=== PATIENT | female | born 1980 | race Caucasian/White ===

== ENCOUNTER 2019-02-20 17:06 | Emergency (ER) | payer OTHER, SELFPAY ==
[2019-02-20 17:21] VITALS: BP 129/79; PULSE 62; RESP 18; TEMP 36.3; O2SAT 100; BMI 29.1
--- NOTE | 2019-02-20 18:23 | ED.NECK ---
HPI - Neck Pain/Injury General Chief Complaint: Neck Pain/Injury Stated Complaint: hurt her neck, in pain, unknown cause Time Seen by Provider: 02/20/19 18:20 Source: patient Mode of arrival: ambulatory Limitations: no limitations History of Present Illness HPI Narrative: Patient is a 38-year-old female who presents with right-sided neck pain. She says 2 days ago she was on the ground medicine around when her head got tilted back and twisted. Since then she has had right-sided paraspinal muscle spasm worse with movement. She has had numbness tingling in her hands a lot better today. He has taken ibuprofen for it without much relief. She has had muscle spasms like this in the past. She does have some right-sided anterior pain no obvious swelling able to swallow completely no voice changes. MD complaint: neck pain and neck injury Onset (ago): day(s) (2) Place: home Radiation: right lateral Severity: moderate Quality: stabbing Duration: constant Related Data Home Medications Medication Instructions Recorded Confirmed ondansetron HCl 4 mg tablet 4 mg PO Q8-12H PRN 10/28/18 10/28/18 Previous Rx's Medication Instructions Recorded propranolol ER 60 mg capsule,24 60 mg PO BEDTIME #30 cap 01/01/19 hr,extended release diazepam [Valium] 5 mg PO BID PRN #10 tab 02/20/19 meloxicam 7.5 mg PO DAILY PRN #14 tab 02/20/19 Allergies Allergy/AdvReac Type Severity Reaction Status Date / Time No Known Drug Allergies Allergy Verified 02/20/19 17:42 Review of Systems Constitutional Denies chills, Denies fever(s), Denies lethargy and Denies weakness ENT Ears, Nose, Mouth, and Throat: Denies vertigo, Denies dizziness and Reports neck pain Cardiovascular Denies chest pain, Denies irregular heart rhythm, Denies lightheadedness, Denies palpitations, Denies dyspnea, Denies dyspnea on exertion and Denies orthopnea Respiratory Denies cough, Denies dyspnea, Denies dyspnea on exertion and Denies wheezing Gastrointestinal Gastrointestinal: Denies abdominal pain, Denies change in bowel habits, Denies diarrhea, Denies nausea and Denies vomiting Genitourinary Denies hematuria, Denies flank pain, Denies urinary incontinence and Denies urinary urgency Musculoskeletal Reports as per HPI and Reports neck pain Integumentary/Breasts Denies pruritus, Denies erythema, Denies rash and Denies wounds Neurologic Denies vertigo, Denies dizziness and Denies weakness Endocrine Denies palpitations Allergic/Immunologic Denies wheezing [facility] Medical History Anxiety (Acute) Thoracic outlet syndrome (Acute) Social History Smoking Status: Former smoker Social History Smoking Status: Former smoker Exam Initial Vital Signs Initial Vital Signs: Vital Signs Temperature 97.3 F L 02/20/19 17:21 Pulse Rate 62 02/20/19 17:21 Respiratory Rate 18 02/20/19 17:21 Blood Pressure 129/79 02/20/19 17:21 Pulse Oximetry 100 02/20/19 17:21 GENERAL: Well-appearing, well-nourished and in no acute distress. HEENT: Head atraumatic,EOMI, pupils reactive, face symmetric, moist mucous membranes NECK: No midline tenderness no vertebral tenderness right paraspinal muscle spasm pain reproduced with palpation and movement. Muscle spasm and obviously appreciated CARDIOVASCULAR: Regular rate and rhythm without murmurs, rubs or gallops. RESPIRATORY: Breath sounds equal bilaterally, no wheezes rales or rhonchi. EXTREMITIES: Normal range of motion, no clubbing or edema. Neurovascularly intact NEUROLOGICAL: Alert and oriented x4.Normal gait and speech. SKIN: Warm, dry, no laceration, no petechiae, no rashes or lesions. Course Orders Ordered: Discontinued Medications Diazepam (Valium) 5 mg PO NOW ONE Stop: 02/20/19 18:21 Last Admin: 02/20/19 18:35 Dose: 5 mg Ketorolac Tromethamine (Toradol) 60 mg IM NOW ONE Stop: 02/20/19 18:21 Last Admin: 02/20/19 18:35 Dose: 60 mg Vital Signs - 8 hr 02/20/19 17:21 02/20/19 19:03 Temperature 97.3 F L Pulse Rate 62 52 L Respiratory Rate 18 16 Blood Pressure 129/79 Blood Pressure [Left Arm] 103/51 L Pulse Oximetry 100 99 MDM - Neck Pain/Injury MDM Narrative Medical decision making narrative: The patient has no trauma she clearly has musculoskeletal pain along her trapezius. She also has some anterior pain she has no difficulty swallowing she is able to rotate her head fully. At this time I do not see any need for any sort of imaging. Discharge Plan Departure Patient Disposition: Home Clinical Impression: Strain of neck muscle Qualifiers: Encounter type: initial encounter Qualified Code(s): S16.1XXA - Strain of muscle, fascia and tendon at neck level, initial encounter Discharge Date/Time: 02/20/19 19:37 Interventions: ED Discharge Assessment Last Done: 02/20/19 19:37 Instructions: Neck Sprain Activity Restrictions/Additional Instructions: *You have been diagnosed with neck strain *What to do: Increased movement and activity as tolerated. Recommend light stretching. *Continue to take medications as directed Meloxicam 7.5 mg once a day. Do not combine with any other NSAIDs such as ibuprofen, Motrin, Advil Aleve etc Valium 5 mg every 12 hours if needed for muscle spasm *Follow up with your primary care provider in 2-3 days *Return to ER if you should have numbness, tingling, increased pain, weakness, inability to swallow or any new, worsening or concerning symptoms Prescriptions: New meloxicam 7.5 mg tablet 7.5 mg PO DAILY PRN (Reason: pain) Qty: 14 RF: 0 diazepam [Valium] 5 mg tablet 5 mg PO BID PRN (Reason: muscle spasm) Qty: 10 RF: 0 No Action ondansetron HCl [Zofran] 4 mg tablet 4 mg PO Q8-12H PRNRF: 0 propranolol 60 mg capsule,extended release 24 hr 60 mg PO BEDTIME Qty: 30 RF: 1
[2019-02-20] MEDS: KETOROLAC 60 MG/2 ML VIAL IM (18:35)
[2019-02-20] MEDS: diazePAM 5 MG TABLET PO (18:35)
--- NOTE | 2019-02-20 18:43 | PC.NURSE ---
pt states, she was stretching 2 days ago, now with right side of neck pain, worsen with movement. when turning to the left side, developes right cheondoism pain. denies difficulty swallowing. pt able to move neck from side to side , and up and down.
[2019-02-20 19:03] VITALS: BP 103/51; PULSE 52; RESP 16; O2SAT 99
== END 2019-02-20 19:37 | disposition home or self-care (01) ==
PROVIDERS: Emergency Provider Emergency Medicine
DX: S16.1XXA Strain of muscle, fascia and tendon at neck level, initial encounter (principal); R20.2 Paresthesia of skin
CPT/HCPCS: 96372; 99283; J1885

== ENCOUNTER 2019-02-21 20:10 | Emergency (ER) | payer OTHER, SELFPAY ==
[2019-02-21 20:17] VITALS: BP 135/75; PULSE 56; RESP 14; TEMP 36.8; O2SAT 99
--- NOTE | 2019-02-21 20:33 | DI.CT.S_ITS ---
PROCEDURE: CT ANGIO NECK INDICATIONS: right sided neck pain and face pain inury 3 days ago TECHNIQUE: After the administration of intravenous contrast, 1.5 mm axial sections acquired from the aortic arch to the [place]. Maximum intensity projection (MIP) reformats were then performed. COMPARISON: None. FINDINGS: Image quality: Excellent. Carotid system: There is a two-vessel aortic arch with common origin of the brachiocephalic trunk and the left common carotid artery. The origins of the common carotid arteries appear patent. The common carotid arteries demonstrate normal calibers and courses. The bifurcation regions appear normal bilaterally. The left internal carotid artery demonstrates a normal caliber and course. There is irregularity of the right internal carotid artery approximately 3.5 cm superior/distal to the carotid bifurcation at the level of C2, where there are 2 areas of adjacent irregular bulbous widening of the internal carotid artery diameter up to 10 mm and 8 mm respectively, when the internal carotid artery both distal and proximal to these regions measures approximately 5 mm. These are best seen on axial image 75 of series 5, sagittal image 64 of series 10, and coronal image 124 of series 9. Posterior circulation: The origins of the vertebral arteries appear patent. The more superior portions of the vertebral arteries demonstrate normal course and caliber. They join to form a normal appearing basilar artery. The patient is left vertebral artery dominant. Soft tissues: There are 5 mm hypoattenuating foci within the bilateral thyroid lobes. Bilateral cervical lymph nodes are mildly prominent but do not definitively measure enlarged by size criteria. Bones: No suspicious bony lesions. There is no acute fracture dislocation of the cervical spine. There is straightening of the normal cervical lordosis, which can be positional or represent muscle spasm. IMPRESSION: 1. 2 areas of irregular enlargement of the right internal carotid artery up to a maximal diameter of 1.0 cm located approximately 3.5 cm superior/distal to the right carotid bifurcation at the level of the C2 vertebral body, concerning for pseudoaneurysms/true aneurysms. 2. No convincing stenosis or occlusion of the bilateral cervical vertebral and carotid arteries. 3. Mildly prominent cervical lymph nodes bilaterally, nonspecific and possibly reactive. 4. Subcentimeter hypoattenuating foci within the thyroid gland; consider thyroid ultrasound if there is continued clinical concern. 5. Straightening of the normal cervical lordosis, which can be positional or represent muscle spasm. Any quantitative stenosis measurements were performed using the NASCET criteria. Findings discussed with the referring provider Dr. Stormy Spencer by telephone by Dr. Rodríguez at approximately 10:30 PM on 02/21/2019. Dictated by: Walt Rodríguez M.D. on 02/21/2019 at 22:06 Approved by: Walt Rodríguez M.D. on 02/21/2019 at 22:40
--- NOTE | 2019-02-21 20:58 | ED_ITS ---
HPI - Back Pain/Injury General Chief Complaint: Back Pain/Injury Stated Complaint: neck problem Time Seen by Provider: 02/21/19 20:20 Source: patient Mode of arrival: ambulatory Limitations: no limitations History of Present Illness HPI Narrative: Patient is a 38-year-old female who presents with right-sided neck pain and face pain. She was seen evaluated here yesterday. She injured her neck 3 days ago there was no fall. She was on the bed when her tickled her, she tilted her head up and twisted it. As she has always had problems on her right side is seems to be worse. She was given meloxicam and Valium yesterday. She took both pills today and 2 Valium she says she has not been getting any relief. She has no numbness or tingling in her right hand, she does have right-sided facial numbness. She can turn to easily however she still has pain some anterior of her neck and right lateral side. MD Complaint: other (Neck pain) Onset (ago): day(s) (3) Related Data Home Medications Medication Instructions Recorded Confirmed ondansetron HCl 4 mg tablet 4 mg PO Q8-12H PRN 10/28/18 10/28/18 Previous Rx's Medication Instructions Recorded propranolol ER 60 mg capsule,24 60 mg PO BEDTIME #30 cap 01/01/19 hr,extended release diazepam [Valium] 5 mg PO BID PRN #10 tab 02/20/19 meloxicam 7.5 mg PO DAILY PRN #14 tab 02/20/19 Allergies Allergy/AdvReac Type Severity Reaction Status Date / Time No Known Drug Allergies Allergy Verified 02/20/19 17:42 Review of Systems Review of Systems ROS Unobtainable: All systems reviewed & are unremarkable except as noted in HPI and below Constitutional Denies chills, Denies fever(s), Denies lethargy and Denies weakness Eyes Denies change in vision, Denies eye discharge, Denies irritation and Denies loss of vision ENT Ears, Nose, Mouth, and Throat: Denies dysphagia, Denies vertigo, Denies dizziness, Reports neck pain and Denies sore throat Cardiovascular Denies chest pain, Denies irregular heart rhythm, Denies lightheadedness, Denies palpitations, Denies dyspnea, Denies dyspnea on exertion and Denies orthopnea Respiratory Denies cough, Denies dyspnea, Denies dyspnea on exertion and Denies wheezing Gastrointestinal Gastrointestinal: Denies dysphagia Genitourinary Denies hematuria, Denies flank pain, Denies urinary incontinence and Denies urinary urgency Musculoskeletal Denies deformity, Denies joint swelling, Reports neck pain and Reports numbness (Right face) Integumentary/Breasts Denies pruritus, Denies erythema, Denies rash and Denies wounds Neurologic Denies vertigo, Denies dizziness, Denies loss of vision, Reports numbness (Right face) and Denies weakness Endocrine Denies palpitations Allergic/Immunologic Denies wheezing [facility] Medical History Anxiety (Acute) Thoracic outlet syndrome (Acute) Social History (Updated 02/22/19 @ 01:11 by Stormy Spencer DO) marital status: Smoking Status: Former smoker Social History marital status: Smoking Status: Former smoker Exam Initial Vital Signs Initial Vital Signs: Vital Signs Temperature 98.3 F 02/21/19 20:17 Pulse Rate 56 L 02/21/19 20:17 Respiratory Rate 14 02/21/19 20:17 Blood Pressure 135/75 02/21/19 20:17 Pulse Oximetry 99 02/21/19 20:17 Const General: cooperative and healthy appearing Orientation: alert, awake and oriented x3 HENMT Head: normal to inspection, normocephalic and atraumatic Ears: hearing grossly normal bilaterally Face and sinus: normal facial exam and face symmetric Eyes General: appearance normal, both eyes and all related structures Eyelids: eyelids normal Pupils: PERRL EOM: EOM intact bilaterally Neck Neck: normal visual inspection, supple, No anterior neck swelling, No lymphadenopathy, No midline deformity and No submandibular swelling Other: Mild right anterior pain, no difficulty swallowing managing own secretions. No swelling appreciated Chest Chest: normal inspection of the chest Resp Effort & Inspection: normal respiratory effort Auscultation: clear to auscultation bilaterally, no rhonchi and no wheezes Cardio Rate: regular rate Heart Sounds: S1 normal and S2 normal Back/Spine/Pelvis Cervical Spine: cervical ROM normal, No scars present, cervical spasm and No step off deformity Skin General: no rashes or lesions noted, No ecchymosis and No erythema Neuro General: alert, awake, oriented x3 and CN's II-XI intact bilaterally Cranial Nerves: PERRL and tongue midline Extrem General: normal to inspection Psych Appearance: grossly normal Course Orders Ordered: ED Orders 02/21/19 20:33 CT angio neck Stat 02/21/19 21:10 Basic Metabolic Panel Stat Complete Blood Count AUTO DIFF Stat Discontinued Medications Hydromorphone HCl (Dilaudid) 0.5 mg IV NOW ONE Stop: 02/22/19 01:42 Last Admin: 02/22/19 01:47 Dose: 0.5 mg Sodium Chloride (Normal Saline 0.9%) 1,000 mls @ 1,000 mls/hr IV BOLUS ONE Stop: 02/21/19 21:32 Last Infusion: 02/21/19 22:39 Dose: 0 mls/hr Admin: 02/21/19 21:16 Dose: 1,000 mls/hr Ketorolac Tromethamine (Toradol) 30 mg IV NOW ONE Stop: 02/21/19 23:39 Last Admin: 02/21/19 23:56 Dose: 30 mg Morphine Sulfate (Morphine) 4 mg IV NOW ONE Stop: 02/21/19 20:34 Last Admin: 02/21/19 21:16 Dose: 4 mg Vital Signs - 8 hr 02/21/19 20:17 02/22/19 01:37 02/22/19 01:53 Temperature 98.3 F 98.4 F Pulse Rate 56 L 64 Respiratory Rate 14 16 Blood Pressure 135/75 Blood Pressure [Right Arm] 115/70 Pulse Oximetry 99 99 MDM - Back Pain/Injury Lab Data Attestation: I reviewed the patient's lab results. Result diagrams: 02/21/19 21:10 02/21/19 21:10 Lab Results 02/21/19 02/21/19 Range/Units 21:10 21:10 WBC 8.0 (4.5-11.0) X10^3/uL RBC 4.48 (4.0-5.2) X10^6/uL Hgb 13.6 (12.0-16.0) g/dL Hct 40.7 (36-46) % MCV 90.9 (80-100) fL MCH 30.5 (26-34) PG MCHC 33.5 (30-36) % RDW 13.2 (11.6-14.8) % Plt Count 192 (150-400) X10^3/uL Neut % (Auto) 50.0 (50-75) % Lymph % (Auto) 39.7 (25-40) % [place] % (Auto) 7.2 (3-14) % Eos % (Auto) 2.7 (2-4) % Baso % (Auto) 0.4 (0-2) % Neut # (Auto) 4000 (9678-6581) /uL Lymph # (Auto) 3200 (6229-7534) /uL [place] # (Auto) 600 (0-900) /uL Eos # (Auto) 200 (0-450) /uL Baso # (Auto) 0 (0-100) /uL Sodium 142 (137-145) mmol/L Potassium 4.1 (3.4-5.1) mmol/L Chloride 105 (98-107) mmol/L Carbon Dioxide 27 (22-32) mmol/L BUN 15 (7-17) mg/dL Creatinine 0.80 (0.52-1.04) mg/dL Estimated GFR > 60.0 (>60) mL/min BUN/Creatinine Ratio 18.8 (6-22) Glucose 88 (70-100) mg/dL Calcium 9.4 (8.4-10.2) mg/dL Point of Care Testing Test Results Negative Imaging Data CTA neck: Radiologist's impression: PROCEDURE: CT ANGIO NECK INDICATIONS: right sided neck pain and face pain inury 3 days ago TECHNIQUE: After the administration of intravenous contrast, 1.5 mm axial sections acquired from the aortic arch to the [place]. Maximum intensity projection (MIP) reformats were then performed. COMPARISON: None. FINDINGS: Image quality: Excellent. Carotid system: There is a two-vessel aortic arch with common origin of the brachiocephalic trunk and the left common carotid artery. The origins of the common carotid arteries appear patent. The common carotid arteries demonstrate normal calibers and courses. The bifurcation regions appear normal bilaterally. The left internal carotid artery demonstrates a normal caliber and course. There is irregularity of the right internal carotid artery approximately 3.5 cm superior/distal to the carotid bifurcation at the level of C2, where there are 2 areas of adjacent irregular bulbous widening of the internal carotid artery diameter up to 10 mm and 8 mm respectively, when the internal carotid artery both distal and proximal to these regions measures approximately 5 mm. These are best seen on axial image 75 of series 5, sagittal image 64 of series 10, and coronal image 124 of series 9. Posterior circulation: The origins of the vertebral arteries appear patent. The more superior portions of the vertebral arteries demonstrate normal course and caliber. They join to form a normal appearing basilar artery. The patient is left vertebral artery dominant. Soft tissues: There are 5 mm hypoattenuating foci within the bilateral thyroid lobes. Bilateral cervical lymph nodes are mildly prominent but do not definitively geri sure enlarged by size criteria. Bones: No suspicious bony lesions. There is no acute fracture dislocation of the cervical spine. There is straightening of the normal cervical lordosis, which can be positional or represent muscle spasm. IMPRESSION: 1. 2 areas of irregular enlargement of the right internal carotid artery up to a maximal diameter of 1.0 cm located approximately 3.5 cm superior/distal to the right carotid bifurcation at the level of the C2 vertebral body, concerning for pseudoaneurysms/true aneurysms. 2. No convincing stenosis or occlusion of the bilateral cervical vertebral and carotid arteries. 3. Mildly prominent cervical lymph nodes bilaterally, nonspecific and possibly reactive. 4. Subcentimeter hypoattenuating foci within the thyroid gland; consider thyroid ultrasound if there is continued clinical concern. 5. Straightening of the normal cervical lordosis, which can be positional or represent muscle spasm. Any quantitative stenosis measurements were performed using the NASCET criteria. Findings discussed with the referring provider Dr. Stormy Spencer by telephone by Dr. Rodríguez at approximately 10:30 PM on 02/21/2019. Dictated by: Walt Rodríguez M.D. on 02/21/2019 at 22:06 Approved by: Walt Rodríguez M.D. on 02/21/2019 at 22:40 MDM Narrative Medical decision making narrative: Patient is having neck spasms and some facial tingling sometimes some numbness. Worsening pain from yesterday so decision to do a CTA rule out dissection. Incidental findings of carotid aneurysm found. Patient is hemodynamically stable did not get much relief with morphine or Toradol. Ambulatory in the ED. 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 I called and spoke with neurosurgeon Dr. Hughes, at [facility] who has reviewed images. At this time he recommends patient be transferred to [facility] for further testing. Unlikely to have surgical intervention but definitely needs to be followed and more testing. The patient took her own propranolol at her regular time while in the ED for her anxiety. Patient is agreeable to go by ambulance. I discussed all findings with the patient and , Education has been performed regarding treatment plan, diagnosis, warning signs and symptoms and all concerns have been addressed. Verbally agree with and understood all of the above. Discharge Plan Departure Patient Disposition: [facility] Clinical Impression: Carotid aneurysm, right Discharge Date/Time: 02/22/19 02:03 Interventions: ED Discharge Assessment Last Done: 02/22/19 02:00 Prescriptions: No Action ondansetron HCl [Zofran] 4 mg tablet 4 mg PO Q8-12H PRNRF: 0 propranolol 60 mg capsule,extended release 24 hr 60 mg PO BEDTIME Qty: 30 RF: 1 meloxicam 7.5 mg tablet 7.5 mg PO DAILY PRN (Reason: pain) Qty: 14 RF: 0 diazepam [Valium] 5 mg tablet 5 mg PO BID PRN (Reason: muscle spasm) Qty: 10 RF: 0
[2019-02-21] MEDS: SODIUM CHLORIDE 0.9% 1,000 ML 1000 ML IV (21:16)
[2019-02-21] MEDS: MORPHINE 4 MG/ML INJ IV (21:16)
[2019-02-21 21:22] LABS: Add Manual Diff / Slide Review NO; Basophils Absolute Auto 0 /uL (0-100); Basophils Percent Auto 0.4 % (0-2); Eosinophils Absolute Auto 200 /uL (0-450); Eosinophils Percent Auto 2.7 % (2-4); Hematocrit 40.7 % (36-46); Hemoglobin 13.6 g/dL (12.0-16.0); Lymphocytes Absolute Auto 3200 /uL (1100-4500); Lymphocytes Percent Auto 39.7 % (25-40); Mean Corpuscular HGB Conc 33.5 % (30-36); Mean Corpuscular Hemoglobin 30.5 PG (26-34); Mean Corpuscular Volume 90.9 fL (80-100); Monocytes Absolute Auto 600 /uL (0-900); Monocytes Percent Auto 7.2 % (3-14); Neutrophils Absolute Auto 4000 /uL (1500-7000); Platelet Count 192 X10^3/uL (150-400); Red Blood Cell Count 4.48 X10^6/uL (4.0-5.2); Red Cell Distribution Width 13.2 % (11.6-14.8)
[2019-02-21 21:31] LABS: BUN Creatinine Ratio 18.8 (6-22); Blood Urea Nitrogen 15 mg/dL (7-17); Calcium 9.4 mg/dL (8.4-10.2); Carbon Dioxide 27 mmol/L (22-32); Chloride 105 mmol/L (98-107); Estimated Glomerular Filt Rate > 60.0 mL/min (>60); Glucose 88 mg/dL (70-100); HEMOLYSIS < 15 (0-50); Potassium 4.1 mmol/L (3.4-5.1); Sodium 142 mmol/L (137-145)
[2019-02-21] MEDS: KETOROLAC 60 MG/2 ML VIAL 30 MG IV (23:56)
--- NOTE | 2019-02-22 00:01 | PC.NURSE ---
Pt asking if she can take her normal dose of propranolol for anxiety. States has her own meds here. Asked provider. Provider ok with Pt taking her own dose of propranolol
[2019-02-22 01:37] VITALS: BP 115/70; PULSE 64; RESP 16; TEMP 36.9
[2019-02-22] MEDS: HYDROMORPHONE 1 MG INJ 0.5 MG IV (01:47)
[2019-02-22 01:53] VITALS: O2SAT 99
== END 2019-02-22 02:03 | disposition short-term general hospital (02) ==
PROVIDERS: Emergency Provider Emergency Medicine
DX: I72.0 Aneurysm of carotid artery (principal); R20.0 Anesthesia of skin; M54.2 Cervicalgia
CPT/HCPCS: 10010; 36591; 70498; 80048; 81025; 85025; 96361; 96374; 96375; 99283; 99284; J1170; J1885; J2270; Q9967

== ENCOUNTER → 2019-03-08 13:28 | Outpatient (CLI) | payer OTHER, SELFPAY ==
--- NOTE | 2019-03-08 13:42 | DI.CT.S_ITS ---
PROCEDURE: CT ANGIO CHEST ABDOMEN PELVIS INDICATIONS: EDEMA TECHNIQUE: Precontrast 5 mm thick sections acquired from the lung apices to the iliac crests. After the administration of intravenous contrast, 2.5 mm thick sections again acquired from the lung apices to the iliac crests. Maximum intensity projection (MIP) oblique sagittal and coronal reformats were then acquired. For radiation dose reduction, the following was used: automated exposure control. COMPARISON: [facility], CT, CT ANGIO NECK, 02/21/2019, 21:41. FINDINGS: Image quality: Excellent. AORTA: Intramural hematoma: Absent Maximum hematoma thickness: Not applicable Focal contrast enhancement: Intramural blood pool (< 2 mm neck or imperceptible communication with aortic lumen): Absent. Ulcer-like projection (broad communication with aortic lumen > 3 mm): Absent. Dissection: Absent [place] classification: Not applicable Maximum aortic diameter: 3.5 cm. Periaortic hematoma: Absent. CHEST: Lungs and pleura: No acute airspace opacities. No pleural effusions or pneumothorax. Central and peripheral airways are patent and normal in caliber. Mediastinum: Heart size is normal. No pericardial effusion. No mediastinal or hilar adenopathy by size criteria. Central pulmonary arteries are normal in size. Esophagus is normal in caliber. No hiatal hernias. Bones and chest wall: No axillary adenopathy by size criteria. Thyroid gland appears normal where well visualized.. No suspicious bony lesions. No vertebral body compression fractures. ABDOMEN: Vasculature: Celiac trunk and mesenteric arteries are patent. Renal arteries are also patent. Solid organs: Liver is normal in size and enhancement except for the presence of a rounded 2.5 x 2.6 cm superior right hepatic lobe hypodensity within the liver parenchyma which enhances up to approximately 48 Hounsfield units. There is a smaller superior left water density and hepatic cysts incidentally noted, centered on series 4 image 85. The larger higher density structure is seen centered on series 4 image 84.. Gallbladder appears normal. Biliary system is non dilated. Pancreas enhances normally. Spleen is normal in size and enhancement. No adrenal nodules. Both kidneys are normal in size and enhancement, without hydronephrosis. Peritoneum and bowel: No free fluid or air. Bowel loops are normal in caliber and wall thickness. Nodes and vessels: No retroperitoneal or mesenteric adenopathy by size criteria. Inferior vena cava is normal in morphology. Miscellaneous: No ventral hernias. PELVIS: Genitourinary: Bladder wall thickness is normal. Miscellaneous: No inguinal hernias or adenopathy. No ventral hernias. Bones: No suspicious bony lesions. No vertebral body compression fractures. IMPRESSION: No evidence of aortic aneurysm or dissection. Reported swollen head and face area. By this examination there is no mass impinging on the superior vena cava. Note was made of a unexpected hypodensity within the subcapsular liver parenchyma abutting the undersurface of the diaphragm and located virtually at the right liver dome. This measures up to 2.5 x 2.6 cm and measures 48 Hounsfield units in radiodensity. Targeted single organ ultrasound is recommended to attempt to visualize this structure to assist in its characterization. Currently by CT scanning it does not meet the imaging criteria for diagnosis of hepatic hemangioma. Dictated by: Agustin Rene M.D. on 03/08/2019 at 15:27 Approved by: Agustin Rene M.D. on 03/08/2019 at 15:34
--- NOTE | 2019-03-08 14:17 | PC.NURSE ---
Labs drawn from PIV site prior to CT scan. verified pt, labeled and sent to lab with order from Dr. Julianna Spivey.
== END ==
PROVIDERS: Visit Provider Internal Medicine
DX: R60.0 Localized edema (principal); Z13.220 Encounter for screening for lipoid disorders; I77.3 Arterial fibromuscular dysplasia; R53.82 Chronic fatigue, unspecified; M79.7 Fibromyalgia
CPT/HCPCS: 71275; 74174; 80048; 80061; 82306; 84439; 84443; 84481; 86038; 86618; Q9967

== ENCOUNTER → 2019-03-08 14:44 | Outpatient (REF) | payer OTHER, SELFPAY ==
[2019-03-08 16:00] LABS: BUN Creatinine Ratio 17.5 (6-22); Blood Urea Nitrogen 14 mg/dL (7-17); Calcium 9.4 mg/dL (8.4-10.2); Carbon Dioxide 28 mmol/L (22-32); Chloride 103 mmol/L (98-107); Cholesterol 279 mg/dL (140-199); Estimated Glomerular Filt Rate > 60.0 mL/min (>60); Glucose 82 mg/dL (70-100); HDL Cholesterol 44 mg/dL (40-60); HEMOLYSIS 32 (0-50); LDL Cholesterol Calculated 217 mg/dL (<100); Potassium 4.2 mmol/L (3.4-5.1); Sodium 140 mmol/L (137-145); Triglycerides 88 mg/dL (35-150)
[2019-03-08 16:16] LABS: Vitamin D 25 Hydroxy (D3) 20.6 ng/mL (30.0-100.0)
[2019-03-08 16:26] LABS: Free T3, Triiodothyronine Free 4.06 pg/mL (2.77-5.27)
[2019-03-08 16:31] LABS: TSH w/ Reflex to FT4 0.79 uIU/mL (0.47-4.68)
[2019-03-10 13:04] LABS: ANA Screen, IFA Negative (Negative)
[2019-03-10 15:10] LABS: Lyme SCREEN w/ Reflex IgG IgM < 0.90 (< 0.90)
== END ==
LOC: LAB 14:44
PROVIDERS: Visit Provider Internal Medicine
DX: Z13.220 Encounter for screening for lipoid disorders (principal); I77.3 Arterial fibromuscular dysplasia; R53.82 Chronic fatigue, unspecified; M79.7 Fibromyalgia
CPT/HCPCS: 80048; 80061; 82306; 84439; 84443; 84481; 86038; 86618

== ENCOUNTER → 2019-03-15 12:06 | Outpatient (CLI) | payer OTHER, SELFPAY ==
--- NOTE | 2019-03-15 | DI.US.S_ITS ---
PROCEDURE: US ABDOMEN LIMITED INDICATIONS: ABNORMAL FINDINGS ON DIAGNOSTIC IMAGING OF LIVER TECHNIQUE: Real-time focused scanning was performed of the abdomen, with image documentation. Color and pulse Doppler interrogation was also performed on the area of interest. COMPARISON: [facility], CT, CT ANGIO CHEST ABDOMEN PELVIS, 03/08/2019, 13:42. FINDINGS: Surface of the diaphragm within the right hepatic lobe there is a homogeneous hyperechoic 2.2 x 2.9 x 2.4 cm structure with what appears to be a small degree of posterior acoustic enhancement, without internal visualized elevated vascularity. The structure corresponds to the area of prior CT concern as an incidental finding in that area during assessment of possible venous obstruction causing head/neck edema, from CT scan 03/08/19. IMPRESSION: The sonographic appearance of the structure within the right hepatic lobe superiorly abutting the diaphragm is hyperechoic with what appears to be mild increased through-transmission, a finding suggestive of hemangioma. Followup ultrasound assessment of this structure in 3 months is recommended and assuming stability of appearance at that 0.6 months thereafter limited single organ ultrasound targeted to that area would be then recommended. Dictated by: Agustin Rene M.D. on 03/15/2019 at 13:52 Approved by: Agustin Rene M.D. on 03/15/2019 at 14:13
== END ==
PROVIDERS: PCP Internal Medicine; Visit Provider Internal Medicine
DX: R93.2 Abnormal findings on diagnostic imaging of liver and biliary tract (principal)
CPT/HCPCS: 76705

== ENCOUNTER → 2019-03-29 11:18 | Outpatient (CLI) | payer OTHER, SELFPAY ==
--- NOTE | 2019-03-29 | DI.US.S_ITS ---
PROCEDURE: US THYROID INDICATIONS: NONTOXIC SINGLE THYROID NODULE TECHNIQUE: Real-time scanning was performed of the thyroid gland, with image documentation. COMPARISON: None. FINDINGS: Right: Thyroid lobe measures 6.1 x 1.7 x 1.6 cm. Left: Thyroid lobe measures 6 x 1.4 x 1.7 cm. Isthmus: 3-4 mm thick. Nodule number: 1 Location: Right mid thyroid Size: 0.4 x 0.3 x 0.2 cm. Composition: Cystic Echogenicity: Hypoechoic Shape: wider than tall. Margins: Smooth Echogenic foci: Larger calcifications can be seen. Total points: 3 ACR TI-RADS category: 3, mildly suspicious. By published criteria, no followup is recommended for a nodule of this size. Nodule number: 2 Location: Left inferior Size: 0.5 x 0.4 x 1 cm. Composition: spongiform Echogenicity: Hypoechoic Shape: wider than tall. Margins: Smooth Echogenic foci: None Total points: 2 ACR TI-RADS category: 2, not suspicious. No followup is recommended. IMPRESSION: Enlarged thyroid gland. Bilateral thyroid nodules are seen. Based upon the sizes of the nodules and the imaging appearance, no specific imaging followup is recommended. ACR TI-RADS definitions and recommendations: TI-RADS 1 (benign): 0 points. FNA not needed. TI-RADS 2 (not suspicious): 2 points. FNA not needed. TI-RADS 3 (mildly suspicious): 3 points. * FNA if 2.5 cm or larger, follow up if 1.5 cm or larger (at 1, 3, and 5 years). TI-RADS 4 (moderately suspicious): 4-6 points. * FNA if 1.5 cm or larger, follow up if 1 cm or larger (at 1, 2, 3, and 5 years). TI-RADS 5 (highly suspicious): 7 points or more. * FNA if 1 cm or larger, follow up if 0.5 cm or larger (every year for 5 years). Dictated by: Carlitos Bejarano M.D. on 03/29/2019 at 12:00 Approved by: Carlitos Bejarano M.D. on 03/29/2019 at 12:02
== END ==
PROVIDERS: PCP Internal Medicine; Visit Provider Internal Medicine
DX: E04.2 Nontoxic multinodular goiter (principal)
CPT/HCPCS: 76536

== ENCOUNTER 2020-01-04 17:08 | Emergency (ER) | payer OTHER, SELFPAY ==
[2020-01-04 17:20] VITALS: BP 127/77; PULSE 71; RESP 16; TEMP 36.8; O2SAT 100; BMI 24.0
--- NOTE | 2020-01-04 17:42 | ED.EXTPRO ---
HPI - Extremity Problem <Cheyanne ValladaresKRISHNA - Last Filed: 01/04/20 20:54> General Chief complaint: Extremity Problem,Nontraumatic Stated complaint: FEET NUMB Time Seen by Provider: 01/04/20 17:11 Source: patient Mode of arrival: Ambulatory Limitations: no limitations History of Present Illness HPI Narrative: 39yo female presents to the ED complaining of cold feet that of worsened over the past few weeks. She states she has not had a official diagnosis of Raynaud's but notices that her feet and hands turn white while being cold, sometimes blue, and then red after their warm. Patient reports pain when her feet are cold and while there warming up. This has happened for the past 6 months. Patient noted a few small blisters to her left 2nd toe that are painful with palpation, she states she has developed over the past few days and have increased in size. 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 She denies any numbness, tingling, weakness, nausea, vomiting, diarrhea, or other concerns. Patient is worried about gangrene. Related Data Home Medications Medication Instructions Recorded Confirmed aspirin 81 mg chewable tablet 81 mg PO DAILY 07/06/19 01/04/20 dihydroergotamine [Migranal] 0.5 mg INTRANASAL PRN PRN 01/04/20 01/04/20 Previous Rx's Medication Instructions Recorded propranolol 60 mg capsule,24 60 mg PO BEDTIME #90 cap 05/18/19 hr,extended release sumatriptan succinate 25 mg tablet 25 mg PO Q2-4H PRN #90 tab 08/17/19 erenumab-aooe 140 mg/mL 140 mg SUBCUT QMONTH #3 ml 08/26/19 subcutaneous auto-injector dextroamphetamine-amphetamine ER 30 mg PO QAM #90 cap 10/08/19 30 mg 24hr capsule,extend release dextroamphetamine-amphetamine 10 10 mg PO DAILY PRN #90 tab 11/02/19 mg tablet lorazepam 2 mg tablet 2 mg PO BID PRN #120 tab MDD 4MG 01/05/20 Allergies Allergy/AdvReac Type Severity Reaction Status Date / Time pineapple Allergy Intermediate tongue Verified 01/04/20 17:19 itchy and swollen methylphenidate AdvReac Intermediate Agitated Verified 01/04/20 17:19 [From Concerta] bupropion AdvReac Mild Anxiety Verified 01/04/20 17:19 Review of Systems <KRISHNA Harrison - Last Filed: 01/04/20 20:54> Review of Systems Narrative: REVIEW OF SYSTEMS: GENERAL: Denies fever or chills. HENT: No head trauma, hearing loss or sore throat. EYES: No loss of vision, double vision, eye pain, or irritation. CARDIOVASCULAR: No chest pain or syncope. RESPIRATORY: No shortness of breath or cough. GASTROINTESTINAL: No nausea, vomiting, diarrhea, or constipation. GENITOURINARY: No flank pain or dysuria. MUSCULOSKELETAL: No pain, weakness, or deformities. Complains of increased whiteness to her feet when there cold, see HPI. INTEGUMENTARY: No rash, lesions, or pruritus. NEURO: No numbness, tingling, memory loss, or confusion. PSYCH: No behavior or mood changes. Patient History <KRISHNA Harrison - Last Filed: 01/04/20 20:54> Medical History Anxiety (Acute) Thoracic outlet syndrome (Acute) Social History marital status: Smoking Status: Former smoker Smoking Status: Former smoker alcohol intake frequency: holidays/special occasions only Substance Use Type: marijuana Exam <KRISHNA Harrison - Last Filed: 01/04/20 20:54> Initial Vital Signs Initial Vital Signs: Vital Signs Temperature 98.3 F 01/04/20 17:20 Pulse Rate 71 01/04/20 17:20 Respiratory Rate 16 01/04/20 17:20 Blood Pressure 127/77 01/04/20 17:20 Pulse Oximetry 100 01/04/20 17:20 PHYSICAL EXAMINATION: GENERAL: Well groomed, alert, and cooperative. Answers questions promptly and appropriately. Vital signs noted. HENT: Normocephalic, atraumatic. EYES: Symmetrical, sclera white, no periorbital swelling. CARDIOVASCULAR: S1 and S2 sounds normal. Regular rate and rhythm, no murmurs, clicks, or bruits. No pedal edema. RESPIRATORY: Normal respiratory rate, trachea midline, airway patent. No stridor, nasal flaring or accessory muscle use. Lungs are clear in all steele. MUSCULOSKELETAL: Patient has full range of motion of ankles, feet, and toes. No black tissue. No calf pain. Normal gait and coordination. Equal tone and mass bilaterally. EXTREMITIES: CMS intact. Pedal and dorsal tibialis pulses 2+ and intact and strong. Feet initially appear white with some bluish color the ends of toes, feet immediately turned red when warmth was applied with hands during conversation and after warm blankets were applied. SKIN: Warm, dry, soft, appropriate color for ethnicity. There are two <1cm round slightly erythematous blisters noted to bottom of left 2nd toe, no open lesions, no surrounding erythema slight tenderness to palpation to this area. NEURO: Alert and Oriented X 3. No sensory deficits. PSYCH: Appropriate affect and mood. <Gustavo Sifuentes DO - Last Filed: 01/05/20 18:32> Initial Vital Signs Initial Vital Signs: Vital Signs Temperature 98.3 F 01/04/20 17:20 Pulse Rate 71 01/04/20 17:20 Respiratory Rate 16 01/04/20 17:20 Blood Pressure 127/77 01/04/20 17:20 Pulse Oximetry 100 01/04/20 17:20 Course <KRISHNA Harrison - Last Filed: 01/04/20 20:54> Course Course Narrative: Blankets were applied extremities which completely returned all color to feet, patient reported decreased pain after fever warm. Consultations Consultation #1: Patient staffed with Dr. sifuentes. Vital Signs Vital signs: Vital Signs - 8 hr 01/04/20 17:20 01/04/20 18:55 Temperature 98.3 F Pulse Rate 70 Pulse Rate [Right] 71 Respiratory Rate 16 12 Blood Pressure [Left Arm] 127/77 125/73 Pulse Oximetry 100 100 <Gustavo Sifuentes DO - Last Filed: 01/05/20 18:32> Vital Signs Vital signs: Vital Signs - 8 hr 01/04/20 17:20 02 18:55 Temperature 98.3 F Pulse Rate 70 Pulse Rate [Right] 71 Respiratory Rate 16 12 Blood Pressure [Left Arm] 127/77 125/73 Pulse Oximetry 100 100 [facility] - Extremity (Nontraumatic) <LOC HarrisonP - Last Filed: 01/04/20 20:54> Medical Records Attestation: I reviewed the patient's medical records. Lab Data Attestation: I reviewed the patient's lab results. [facility] Narrative Medical decision making narrative: This is a 39-year-old female with a history of pseudoaneurysm and fibromuscular dysfunction, presents emergency department for complaints of her feet being cold, turning white in color, glue, and red and few blisters noted to her left toes. Patient was afraid that she had Raynaud's and was worried about getting gangrene. Patient's toes initially presented cold to touch, weight in color, with a small bluish coloration on the ends of her 4th and 5th toes bilaterally. Please immediately changed color to red when warmth was applied by my hand. Patient has good equal pedal and posterior tibialis pulses, no decrease in sensation. And color, returned completely after remain feet with blankets. Differential is most likely Raynaud's syndrome, less likely arterial involvement as pulses are equal bilaterally and strong, no significant pain, return of color after apply warm. Less likely vascular etiology due to lack of swelling, ulcerations, or other concerns. Less concern for gangrene due to lack of narcotic tissue on examination. There are a small amount of blisters noted, I do not believe these are related to Raynaud's, they appear to be friction blisters. Patient was encouraged to follow up with her vascular specialist as we discussed. Return precautions given for new or worsening symptoms. Patient agreed to plan of care verbalized understanding. Discharge Plan Departure Patient Disposition: Home Clinical Impression: Raynaud's disease Qualifiers: Raynaud?s-associated gangrene presence: without gangrene Qualified Code(s): I73.00 - Raynaud's syndrome without gangrene Discharge Date/Time: 01/04/20 18:56 Instructions: Raynaud Disease and Phenomenon Activity Restrictions/Additional Instructions: Thank you for entrusting me with your care today. As discussed, your symptoms are most likely caused by Raynaud's disease. Please keep your feet very warm for the next few weeks. Follow-up with your vascular specialist for further management. Return emergency department for any new or worsening symptoms such as blackened toes, loss of feeling, inability of your feet to be warmed, chest pain, fevers, or other concerns. Prescriptions: No Action dextroamphetamine-amphetamine [Adderall XR] 30 mg capsule,extended release 24hr 30 mg PO QAM Qty: 90 RF: 0 dextroamphetamine-amphetamine [Adderall] 10 mg tablet 10 mg PO DAILY PRN (Reason: inattention) Qty: 90 RF: 0 propranolol 60 mg capsule,extended release 24 hr 60 mg PO BEDTIME Qty: 90 RF: 3 sumatriptan succinate 25 mg tablet 25 mg PO Q2-4H PRN (Reason: migraine headache) Qty: 90 RF: 2 Aimovig Autoinjector 140 mg/mL auto-injector 140 mg SUBCUT QMONTH Qty: 3 RF: 4 lorazepam 2 mg tablet 2 mg PO BID MDD 4MG PRN (Reason: anxiety) Qty: 120 RF: 1 dihydroergotamine [Migranal] 0.5 mg/pump act. (4 mg/mL) spray,non-aerosol 0.5 mg INTRANASAL PRN PRN (Reason: Migraine Headache) RF: 0 aspirin 81 mg tablet,chewable 81 mg PO DAILY RF: 0 Referrals: Julianna Spivey MD [Primary Care Provider] - <Gustavo Sifuentes DO - Last Filed: 01/05/20 18:32> Sign Out Provider Sign Out Attestation: Dr Sifuentes Co-Sign Statement: I was available for consultation during this patient's emergency department visit. This chart is signed by myself for administrative purposes only. I did not have direct contact with this patient during this visit. They were seen independently by the APC.
[2020-01-04 18:55] VITALS: BP 125/73; PULSE 70; RESP 12; O2SAT 100
== END 2020-01-04 18:56 | disposition home or self-care (01) ==
PROVIDERS: Emergency Provider Nurse Practitioner; PCP Internal Medicine
DX: I73.00 Raynaud's syndrome without gangrene (principal)
CPT/HCPCS: 99281